=== PATIENT | female | born 1990 | race Caucasian/White ===

== ENCOUNTER 2021-07-07 00:39 | Inpatient (IN) ==
[2021-07-07 01:52] LABS: ABS Eosinophils 0.1 10^3/ul (0-0.6); ABS Lymphocytes 1.4 10^3/ul (1.0-4.8); ABS Monocytes 0.4 10^3/ul (0-0.8); ABS Neutrophils 2.6 10^3/ul (1.5-7.7); Eosinophil % 1.4 %; Hematocrit 38 % (35-47); Lymphocyte % 31.2 %; Mean Corpuscular HGB Conc 34 g/dL (31-36); Mean Corpuscular Hemoglobin 30 pg (27-31); Mean Corpuscular Volume 87 fL (80-97); Mean Platelet Volume 8.5 fL (7.4-10.4); Platelet Count 278 10^3/uL (150-450); Red Blood Count 4.36 10^6 /uL (3.70-4.87); Red Cell Distribution Width 14 % (10-15); White Blood Count 4.4 10^3/uL (3.5-10.8)
[2021-07-07 02:11] LABS: ALT 12 U/L (7-52); AST 15 U/L (13-39); Albumin 3.7 g/dL (3.2-5.2); Albumin/Globulin Ratio 1.3 (1-3); Alkaline Phosphatase 69 U/L (35-149); Anion Gap 6 mmol/L (2-11); Blood Urea Nitrogen 7 mg/dL (6-24); C Reactive Protein 19.46 mg/L (<8.01); CO2 Carbon Dioxide 26 mmol/L (22-32); Chloride 102 mmol/L (101-111); Globulin 2.9 g/dL (2-4); Glucose 256 mg/dL (70-100); Sodium 134 mmol/L (135-145); Total Protein 6.6 g/dL (6.4-8.9); eGFR CKD-EPI 120.7 (>60)
[2021-07-07 02:17] LABS: HCG Pregnancy < 0.60 mIU/mL
[2021-07-07] MEDS ORDERED: Vancomycin 1,000 MG in NS 0.9% 250 ml 250 ML IVPB SCH (03:00)
[2021-07-07] MEDS ORDERED: Vancomycin per Pharmacy 1 EA NOTE FOLLOW UP PRN (03:16)
[2021-07-07] MEDS: cefTRIAXone 1 gm/50 mL NS BAG 1 GM/50 ML BAG IVPB SCH (03:41)
[2021-07-07] MEDS ORDERED: Vancomycin 2,000 MG in NS 0.9% 500 ml BAG 500 ML IVPB ONE (04:00)
[2021-07-07] MEDS ORDERED: Iodixanol (CONTRAST) 320 MG/ML 100 ML SDV IV ONE (04:24)
[2021-07-07] MEDS: Multivitamins/Minerals TAB PO SCH ×2 (06:13→16:31)
[2021-07-07] MEDS ORDERED: Aspirin EC 81 mg TAB.EC (enteric coated) PO SCH (09:00)
[2021-07-07] MEDS ORDERED: Vancomycin 1,750 MG in NS 0.9% 500 ml BAG 500 ML IVPB SCH (12:30)
[2021-07-07] MEDS: Aspirin EC 81 mg TAB.EC (enteric coated) PO SCH (18:07)
[2021-07-07] MEDS: Vancomycin 1,500 MG in NS 0.9% 250 ml 250 ML IVPB SCH (21:26)
[2021-07-08] MEDS ORDERED: Insulin LISPRO* FOR INSULIN PUMP SUBCUT SCH (01:00)
[2021-07-08] MEDS: Vancomycin 1,500 MG in NS 0.9% 250 ml 250 ML IVPB SCH ×3 (04:41→20:07)
[2021-07-08 06:00] LABS: ABS Eosinophils 0.1 10^3/ul (0-0.6); ABS Lymphocytes 1.8 10^3/ul (1.0-4.8); ABS Monocytes 0.4 10^3/ul (0-0.8); ABS Neutrophils 3.2 10^3/ul (1.5-7.7); Eosinophil % 1.2 %; Hematocrit 40 % (35-47); Hemoglobin 13.7 g/dL (12.0-16.0); Lymphocyte % 32.7 %; Mean Corpuscular HGB Conc 35 g/dL (31-36); Mean Corpuscular Hemoglobin 30 pg (27-31); Mean Corpuscular Volume 87 fL (80-97); Mean Platelet Volume 8.2 fL (7.4-10.4); Platelet Count 268 10^3/uL (150-450); Red Blood Count 4.57 10^6 /uL (3.70-4.87); Red Cell Distribution Width 14 % (10-15); White Blood Count 5.4 10^3/uL (3.5-10.8)
[2021-07-08 06:15] LABS: Calcium 9.3 mg/dL (8.6-10.3); Potassium 3.9 mmol/L (3.5-5.0); eGFR CKD-EPI 90.5 (>60)
[2021-07-08] MEDS: cefTRIAXone 1 gm/50 mL NS BAG 1 GM/50 ML BAG IVPB SCH (08:38)
[2021-07-08] MEDS: Multivitamins/Minerals TAB PO SCH (08:40)
[2021-07-08] MEDS ORDERED: Vancomycin Trough Check NOTE FOLLOW UP ONE ×2 (12:00→12:30)
[2021-07-08] MEDS: Aspirin EC 81 mg TAB.EC (enteric coated) PO SCH (17:03)
[2021-07-09] MEDS: Vancomycin 1,500 MG in NS 0.9% 250 ml 250 ML IVPB SCH ×3 (05:14→20:16)
[2021-07-09 07:36] LABS: ABS Eosinophils 0.1 10^3/ul (0-0.6); ABS Monocytes 0.4 10^3/ul (0-0.8); ABS Neutrophils 2.3 10^3/ul (1.5-7.7); Eosinophil % 1.4 %; Hematocrit 39 % (35-47); Hemoglobin 13.2 g/dL (12.0-16.0); Lymphocyte % 40.8 %; Mean Corpuscular HGB Conc 34 g/dL (31-36); Mean Corpuscular Hemoglobin 30 pg (27-31); Mean Corpuscular Volume 87 fL (80-97); Mean Platelet Volume 8.1 fL (7.4-10.4); Platelet Count 278 10^3/uL (150-450); Red Blood Count 4.42 10^6 /uL (3.70-4.87); Red Cell Distribution Width 14 % (10-15); White Blood Count 4.8 10^3/uL (3.5-10.8)
[2021-07-09 07:46] LABS: C Reactive Protein 7.25 mg/L (<8.01); Potassium 3.7 mmol/L (3.5-5.0); eGFR CKD-EPI 120.7 (>60)
[2021-07-09] MEDS: Multivitamins/Minerals TAB PO SCH (08:38)
[2021-07-09] MEDS: cefTRIAXone 1 gm/50 mL NS BAG 1 GM/50 ML BAG IVPB SCH (08:38)
[2021-07-09] MEDS ORDERED: TESTOSTERONE IM SCH (09:00)
[2021-07-09] MEDS: Aspirin EC 81 mg TAB.EC (enteric coated) PO SCH (16:35)
[2021-07-10] MEDS: Vancomycin 1,500 MG in NS 0.9% 250 ml 250 ML IVPB SCH (04:54)
[2021-07-10 08:58] VITALS: BP 122/59
[2021-07-10] MEDS: Multivitamins/Minerals TAB PO SCH (09:36)
[2021-07-11] MEDS ORDERED: Vancomycin Trough Check NOTE FOLLOW UP ONE (12:00)
== END 2021-07-10 10:48 | disposition home or self-care (01) | DRG 383 ==
LOC: ED 00:39 → EDHOLD 00:39 → SUATTDRO 02:49 → SSU 18:56
PROVIDERS: ADMIT Internal Medicine; ATTEND Hospitalist